=== PATIENT | male | born 1995 | race Caucasian/White ===

== ENCOUNTER 2017-03-06 05:07 | Emergency (ER) | payer BC ==
[2017-03-06] MEDS ORDERED: DECADRON 10MG INJ. IM ONE (05:35)
[2017-03-06] MEDS ORDERED: TORAdol 30 mg Injection IM ONE (05:35)
--- NOTE | 2017-03-06 05:35 | ERPHSYRPT ---
- History of Present Illness Time Seen by Provider: 03/06/17 05:22 Source: patient Exam Limitations: no limitations Patient Subjective Stated Complaint: pt states he coughed this morning and began having lower back pain and is now having trouble standing up straight and difficulty walking. Triage Nursing Assessment: pt alert and oriented. answers questions approp. respirations nonlabored with lungs cta. skin pink warm and dry. pt to room in wheelchair. gait from wheelchair to stretcher slow and stooped. no tenderness noted with palpation to spine. pt denies numbness, tingling or radiation of back pain. Physician History: Patient is a 22-year-old male with no significant past medical history complains of sudden onset of low back pain when he coughed on his way to work this morning. He has no numbness or tingling or pain radiating down his legs. He is able to urinate without difficulty. This back pain occurred approximately 45 minutes ago. He has tried no Tylenol or ibuprofen. Timing/Duration: hour(s) (1) Method of Injury: other (coughed) Quality: sharp, aching Back Pain Location: lumbar spine Severity of Pain-Max: moderate Severity of Pain-Current: moderate Modifying Factors: Improves With: nothing Associated Symptoms: denies symptoms Previous symptoms: no prior history Allergies/Adverse Reactions: No Known Drug Allergies Allergy (Verified 03/06/17 05:17) Home Medications: No Home Meds 1 ea UD 03/06/17 [History] Hx Tetanus, Diphtheria Vaccination/Date Given: Yes (2010) Hx Influenza Vaccination/Date Given: No Hx Pneumococcal Vaccination/Date Given: No Immunizations Up to Date: Yes - Review of Systems Constitutional: No Fever, No Chills Eyes: No Symptoms Ears, Nose, & Throat: No Symptoms Respiratory: No Cough, No Dyspnea Cardiac: No Chest Pain, No Edema, No Syncope Abdominal/Gastrointestinal: No Abdominal Pain, No Nausea, No Vomiting, No Diarrhea Genitourinary Symptoms: No Dysuria Musculoskeletal: Back Pain Skin: No Rash Neurological: No Dizziness, No Focal Weakness, No Sensory Changes Psychological: No Symptoms Endocrine: No Symptoms Hematologic/Lymphatic: No Symptoms Immunological/Allergic: No Symptoms All Other Systems: Reviewed and Negative - Past Medical History Pertinent Past Medical History: No Neurological History: No Pertinent History ENT History: No Pertinent History Cardiac History: No Pertinent History Respiratory History: Asthma Endocrine Medical History: No Pertinent History Musculoskeletal History: No Pertinent History GI Medical History: No Pertinent History History: No Pertinent History Psycho-Social History: No Pertinent History Male Reproductive Disorders: No Pertinent History - Past Surgical History Past Surgical History: Yes Neuro Surgical History: No Pertinent History Cardiac: No Pertinent History Respiratory: No Pertinent History Gastrointestinal: No Pertinent History Genitourinary: No Pertinent History Musculoskeletal: No Pertinent History Male Surgical History: No Pertinent History Other Surgical History: tonsils, adenoids - Social History Smoking Status: Current every day smoker How long have you smoked: 4 Exposure to second hand smoke: Yes Drug Use: none Patient Lives Alone: No - Nursing Vital Signs Temperature: 98.3 F Temperature Source: Oral Pulse Rate: 110 Respiratory Rate: 18 Pain Intensity: 4 - Physical Exam General Appearance: moderate distress Eye Exam: PERRL/EOMI, eyes nml inspection Ears, Nose, Throat Exam: normal ENT inspection Neck Exam: normal inspection, non-tender, supple, full range of motion, No meningismus, No midline tenderness Respiratory Exam: normal breath sounds, lungs clear, No respiratory distress Cardiovascular Exam: regular rate/rhythm, normal heart sounds Gastrointestinal Exam: soft, No tenderness, No mass Rectal Exam: not done Back Exam: decreased range of motion, muscle spasm, No vertebral tenderness, No point tenderness Extremity Exam: normal inspection, normal range of motion, No calf tenderness, No pedal edema Neurologic Exam: alert, oriented x 3, cooperative, 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 You were given Toradol 60 mg and Decadron 10 mg IM injection in the ER. You were given a prescription for Flexeril 10 mg every 8 hours as needed. Use ice as needed. Also given a work excuse for today. Prescriptions: Cyclobenzaprine HCl [Flexeril] 5 mg PO Q8H PRN PRN #10 tablet PRN Reason: Pain
[2017-03-06] MEDS ORDERED: DECADRON 10MG INJ. ONE (05:44)
[2017-03-06] MEDS ORDERED: TORAdol 30 mg Injection ONE ×2 (05:44→05:48)
[2017-03-06 06:21] VITALS: BP 138/79; PULSE 89; O2SAT 97
== END 2017-03-06 06:21 | disposition home or self-care (01) ==
LOC: ED 05:07
DX: M54.5 Low back pain (principal); R26.2 Difficulty in walking, not elsewhere classified
CPT/HCPCS: 96372; 99284; J1100; J1885

== ENCOUNTER 2019-06-13 20:56 | Emergency (ER) | payer BC ==
--- NOTE | 2019-06-13 20:59 | ERPHSYRPT ---
- History of Present Illness Time Seen by Provider: 06/13/19 20:59 Historian: patient, family Exam Limitations: no limitations Physician History: 24 y/o white male presents with right flank and right lower quadrant/groin pain. 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 pt has never had any abd surgeries. nausea but no vomiting. no diarrhea. Timing/Duration: today, sudden, worse Abdominal Pain Onset Location: flank (right), other (groin right side) Pain Radiation: flank (right ), groin (right) Severity of Pain-Max: moderate Severity of Pain-Current: moderate Modifying Factors: Improves With: nothing Associated Symptoms: diaphoresis, nausea, No fever/chills, No vomiting Previous symptoms: no prior history Allergies/Adverse Reactions: No Known Drug Allergies Allergy (Verified 03/06/17 05:17) Home Medications: No Home Meds [No Home Meds] 1 ea UD 03/06/17 [History] Hx Tetanus, Diphtheria Vaccination/Date Given: Yes (2010) Hx Influenza Vaccination/Date Given: No Hx Pneumococcal Vaccination/Date Given: No - Review of Systems Constitutional: No Symptoms Eyes: No Symptoms Ears, Nose, & Throat: No Symptoms Respiratory: No Symptoms Cardiac: No Symptoms Abdominal/Gastrointestinal: Nausea, No Vomiting, No Diarrhea Genitourinary Symptoms: Flank Pain (right flank) Musculoskeletal: No Symptoms Skin: No Symptoms Neurological: No Symptoms Psychological: No Symptoms Endocrine: No Symptoms Hematologic/Lymphatic: No Symptoms Immunological/Allergic: No Symptoms All Other Systems: Reviewed and Negative - Past Medical History Pertinent Past Medical History: No Neurological History: No Pertinent History ENT History: No Pertinent History Cardiac History: No Pertinent History Respiratory History: Asthma Endocrine Medical History: No Pertinent History Musculoskeletal History: No Pertinent History GI Medical History: No Pertinent History History: No Pertinent History Psycho-Social History: No Pertinent History Male Reproductive Disorders: No Pertinent History - Past Surgical History Past Surgical History: Yes Neuro Surgical History: No Pertinent History Cardiac: No Pertinent History Respiratory: No Pertinent History Gastrointestinal: No Pertinent History Genitourinary: No Pertinent History Musculoskeletal: No Pertinent History Male Surgical History: No Pertinent History Other Surgical History: tonsils, adenoids - Social History Smoking Status: Current every day smoker How long have you smoked: 4 Exposure to second hand smoke: Yes Drug Use: none Patient Lives Alone: No - Nursing Vital Signs Nursing Vital Signs: Initial Vital Signs Temperature 98.4 F 06/13/19 20:57 Pulse Rate 93 H 06/13/19 20:57 Respiratory Rate 20 06/13/19 20:57 O2 Sat by Pulse Oximetry 96 06/13/19 20:57 Pain Scale Pain Intensity 10 - Physical Exam General Appearance: moderate distress, alert, anxiety Eye Exam: PERRL/EOMI, eyes nml inspection Ears, Nose, Throat Exam: normal ENT inspection, moist mucous membranes Neck Exam: normal inspection, non-tender, supple, full range of motion Respiratory Exam: normal breath sounds, lungs clear, airway intact, No chest tenderness, No respiratory distress Cardiovascular Exam: regular rate/rhythm, normal heart sounds, normal peripheral pulses Gastrointestinal/Abdomen Exam: soft, normal bowel sounds, tenderness, guarding ( rlg), No rebound Back Exam: normal inspection, normal range of motion, CVA tenderness (right), No vertebral tenderness Extremity Exam: normal inspection, normal range of motion, pelvis stable Neurologic Exam: alert, oriented x 3, cooperative, 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, normal mood/affect Skin Exam: normal color, warm, dry Lymphatic Exam: No adenopathy SpO2 Interpretation: normal O2 Delivery: Room Air - Course Nursing assessment & vital signs reviewed: Yes Ordered Tests: Active Orders 24 hr Category Date Time Status IV Insertion STAT Care 06/13/19 21:15 Active ABDOMEN AND PELVIS W/0 CONTRAS [CT] Stat Exams 06/13/19 22:01 Taken AMYLASE Stat Lab 06/13/19 21:25 Completed CBC W DIFF Stat Lab 06/13/19 21:25 Completed CMP Stat Lab 06/13/19 21:25 Completed LIPASE Stat Lab 06/13/19 21:25 Completed Lactic Acid Stat Lab 06/13/19 21:25 Completed UA W/RFX UR CULTURE Stat Lab 06/13/19 22:15 Received Medication Summary Discontinued Medications Generic Name Dose Route Start Last Admin Trade Name Freq PRN Reason Stop Dose Admin Hydromorphone HCl 1 mg 06/13/19 21:15 06/13/19 21:28 Hydromorphone 1 Mg/Ml Ampule IV 06/13/19 21:16 1 mg STAT ONE Administration Hydromorphone HCl Confirm 06/13/19 21:25 Hydromorphone 1 Mg/Ml Ampule Administered 06/13/19 21:26 Dose 1 mg .ROUTE .STK-MED ONE Sodium Chloride 1,000 mls @ 999 mls/hr 06/13/19 21:15 06/13/19 22:37 Sodium Chloride 0.9% 1000 Ml IV 06/13/19 22:15 Infused .Q1H1M STA Infusion Sodium Chloride Confirm 06/13/19 21:25 Sodium Chloride 0.9% 1000 Ml Administered 06/13/19 21:26 Dose 1,000 mls @ ud .ROUTE .STK-MED ONE Ondansetron HCl 4 mg 06/13/19 21:15 06/13/19 21:27 Zofran 4 Mg/2 Ml Vial IV 06/13/19 21:16 4 mg STAT ONE Administration Ondansetron HCl Confirm 06/13/19 21:25 Zofran 4 Mg/2 Ml Vial Administered 06/13/19 21:26 Dose 4 mg .ROUTE .STK-MED ONE Lab/Rad Data: Laboratory Result Diagrams 06/13/19 21:25 06/13/19 21:25 Laboratory Results 06/13/19 06/13/19 06/13/19 Range/Units 21:25 21:25 21:25 WBC 13.8 H (4.0-10.5) K/mm3 RBC 5.31 (4.1-5.6) M/mm3 Hgb 15.2 (12.5-18.0) gm/dl Hct 44.5 (42-50) % MCV 83.8 (78-100) fl MCH 28.6 (26-32) pg MCHC 34.2 (32-36) g/dl RDW 13.6 (11.5-14.0) % Plt Count 311 (150-450) K/mm3 MPV 9.3 (6-9.5) fl Gran % 47.7 (36.0-66.0) % Eos # (Auto) 0.87 H (0-0.5) Absolute Lymphs (auto) 5.32 H (1.0-4.6) Absolute Monos (auto) 0.97 (0.0-1.3) Lymphocytes % 38.6 (24.0-44.0) % Monocytes % 7.0 (0.0-12.0) % Eosinophils % 6.3 H (0.00-5.0) % Basophils % 0.4 (0.0-0.4) % Absolute Granulocytes 6.59 (1.4-6.9) Basophils # 0.05 (0-0.4) Sodium 143 (137-145) mmol/L Potassium 3.7 (3.5-5.1) mmol/L Chloride 108 H (98-107) mmol/L Carbon Dioxide 23 (22-30) mmol/L Anion Gap 15.3 H (5-15) MEQ/L BUN 14 (9-20) mg/dL Creatinine 0.97 (0.66-1.25) mg/dL Estimated GFR > 60.0 ML/MIN Glucose 127 H (74-106) mg/dL Lactic Acid 1.3 (0.4-2.0) Calcium 10.1 (8.4-10.2) mg/dL Total Bilirubin 0.40 (0.2-1.3) mg/dL AST 33 (17-59) U/L ALT 45 (0-50) U/L Alkaline Phosphatase 97 (38-126) U/L Serum Total Protein 7.3 (6.3-8.2) g/dL Albumin 4.6 (3.5-5.0) g/dL Amylase 40 (30-110) U/L Lipase 65 (23-300) U/L - Progress Progress: improved Progress Note: 06/13/19 22:41 ct abd/pelvis-2 to 3 mm urinary bladder calculus. presumed passage of ureteral stone. minimal ureteral prominence and mild hydronephrosis. normal appendix 06/13/19 22:42 pts pain nearly completely gone. Counseled pt/family regarding: lab results, diagnosis, need for follow-up, rad results - Departure Departure Disposition: Home Clinical Impression: Right ureteral calculus Condition: Stable Critical Care Time: No Referrals: LAURA VINCENT NP [Primary Care Provider] - Additional Instructions: drink plenty of fluids. use ibuprofen 600mg orally 3 times daily with food.
[2019-06-13] MEDS ORDERED: Sodium Chloride 0.9% 1000 ML 1,000 ML ONE (21:25)
[2019-06-13] MEDS ORDERED: Zofran 4 MG/2 ML VIAL ONE (21:25)
[2019-06-13] MEDS ORDERED: Hydromorphone 1 mg/ml Ampule ONE (21:25)
[2019-06-13] MEDS: Sodium Chloride 0.9% 1000 ML 1,000 ML IV STA (21:26)
[2019-06-13] MEDS: Zofran 4 MG/2 ML VIAL IV ONE (21:27)
[2019-06-13] MEDS: Hydromorphone 1 mg/ml Ampule IV ONE (21:28)
[2019-06-13 21:32] LABS: BASOPHIL % 0.4 % (0.0-0.4); Basophil (Absolute #) 0.05 (0-0.4); Eosinophil % 6.3 % (0.00-5.0); Eosinophil (Absolute #) 0.87 (0-0.5); Granulocyte Absolute (ANC) 6.59 (1.4-6.9); Granulocytes % 47.7 % (36.0-66.0); Hematocrit 44.5 % (42-50); Hemoglobin 15.2 gm/dl (12.5-18.0); Lymphocyte (Absolute #) 5.32 (1.0-4.6); Lymphocytes % 38.6 % (24.0-44.0); Mean Cell Volume 83.8 fl (78-100); Mean Corpuscular Hemoglobin 28.6 pg (26-32); Mean Corpuscular Hgb Concent. 34.2 g/dl (32-36); Mean Platelet Volume 9.3 fl (6-9.5); Monocyte (Absolute #) 0.97 (0.0-1.3); Platelet Count 311 K/mm3 (150-450); Red Blood Count 5.31 M/mm3 (4.1-5.6); Red Cell Distribution Width 13.6 % (11.5-14.0); White Blood Count 13.8 K/mm3 (4.0-10.5)
[2019-06-13 21:42] LABS: ALBUMIN 4.6 g/dL (3.5-5.0); ALKALINE PHOSPHATASE 97 U/L (38-126); AMYLASE 40 U/L (30-110); ANION GAP 15.3 MEQ/L (5-15); BLOOD UREA NITROGEN 14 mg/dL (9-20); CHLORIDE 108 mmol/L (98-107); Calcium 10.1 mg/dL (8.4-10.2); Carbon Dioxide 23 mmol/L (22-30); Creatinine 1 0.97 mg/dL (0.66-1.25); Glucose 127 mg/dL (74-106); LIPASE 65 U/L (23-300); Potassium 3.7 mmol/L (3.5-5.1); SGOT/AST 33 U/L (17-59); SGPT/ALT 45 U/L (0-50); SODIUM 143 mmol/L (137-145); Total Protein 7.3 g/dL (6.3-8.2)
[2019-06-13 22:17] VITALS: BP 127/76
[2019-06-13 22:41] LABS: Appearance SLIGHTLY CLOUDY (CLEAR); Bilirubin NEGATIVE (NEGATIVE); Blood LARGE Ery/ul (0-5); Glucose NEGATIVE (NEGATIVE); Hyaline Casts 0-2 /LPF (0-2); Ketones TRACE (NEGATIVE); Leukocyte Esterase NEGATIVE (NEGATIVE); Mucus SLIGHT /HPF (NEGATIVE); Nitrite NEGATIVE (NEGATIVE); Protein,Urine Dip NEGATIVE (Negative); Urobilinogen NEGATIVE mg/dL (0-1)
[2019-06-13 22:42] LABS: RBC >101 /HPF (0-2)
[2019-06-13] MEDS ORDERED: TORAdol 30 mg Injection ONE (22:46)
[2019-06-13] MEDS: TORAdol 30 mg Injection IV ONE (22:48)
[2019-06-13] MEDS ORDERED: NORCO 5/325 MG ONE (22:48)
[2019-06-13] MEDS: NORCO 5/325 MG PO ONE (22:51)
[2019-06-13 23:03] VITALS: PULSE 67; O2SAT 97
[2019-06-13 23:56] LABS: Slide Review 1 YES
--- NOTE | 2019-06-14 08:53 | XRAY ---
Indication: Right lower quadrant pain. Multiple contiguous axial images obtained through the abdomen and pelvis without contrast using renal stone protocol. Comparison: May 01, 2012. Lung bases demonstrates mild bibasilar dependent atelectasis. No infiltrate or effusion. Heart is not enlarged. New 2-3 mm urinary bladder calculus on the right. Right ureter is slightly prominent and there is mild hydronephrosis consistent with recent passage of calculus. Left mid renal cortex again demonstrates small cyst with new punctate calcification. New seminal vesicle calcifications. Noncontrasted stomach and bowel loops appear nonobstructed. Normal appendix. There are now scattered centimeter and subcentimeter mesenteric nodes with minimal stranding favoring adenitis. No free fluid/air. Mild fatty liver. Remaining liver, gallbladder, pancreas, spleen, adrenal glands, kidneys, ureters, bladder, and aorta appear unremarkable for noncontrast exam. Osseous structures again demonstrates bilateral L5 spondylolysis with minimal grade 1 spondylolisthesis. Impression: 1. New urinary bladder micro-calculus with recent passage from right system. Again left renal cortical cyst with new punctate calcification. 2. New scattered small mesenteric nodes with stranding favoring mesenteric adenitis. 3. New fatty liver. 4. Stable L5 spondylolysis with minimal spondylolisthesis. CT DI 23.45
== END 2019-06-13 22:50 | disposition home or self-care (01) ==
LOC: ED 20:56
DX: N20.1 Calculus of ureter (principal)
CPT/HCPCS: 36000; 36415; 74176; 80053; 81001; 82150; 83605; 83690; 85025; 96360; 96374; 96375; 99284; 99291; J1170; J1885; J2405; A9270-GY

== ENCOUNTER 2020-07-12 02:27 | Emergency (ER) | payer BC, MEDICAID, SELFPAY ==
[2020-07-12 02:46] VITALS: O2SAT 98
--- NOTE | 2020-07-12 03:07 | ERPHSYRPT ---
- History of Present Illness Time Seen by Provider: 07/12/20 02:44 Source: patient Exam Limitations: no limitations Patient Subjective Stated Complaint: "I was working on my girlfriend's car when I tripped and landed on my left wrist." Triage Nursing Assessment: Pt presented alert et oriented x3 answering questions appropriately. Pt ambulated to the room without complications. pt reported tripping and landing on his right wrist. The hand was described to be in flexion with the posterior hand striking the ground first. 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 Pain characterized as numb/tingling with increased pain during movement. No reported alleviating factors. No noted vascular compromise to the extremity. Pulse/motor/sensory intact with decreased ROM to the right hand. Physician History: 25 years old male presented in the ER with chief complaint of left wrist pain almost 3 hours after he tripped and fell on outstretched hand while working on a car in his garage. Since then he is complaining of moderate intensity sharp pain, more with movements and better with keeping wrist still. Denies any associated swelling or difficulty movements of fingers/thumb. No injury anywhere else. Allergies/Adverse Reactions: No Known Drug Allergies Allergy (Verified 07/12/20 02:33) Home Medications: Divalproex Sodium 1 tab PO BID 07/12/20 [History] Fluoxetine HCl 20 mg [Prozac 20 MG] 1 cap PO DAILY 07/12/20 [History] Hx Tetanus, Diphtheria Vaccination/Date Given: Yes (2010) Hx Influenza Vaccination/Date Given: No Hx Pneumococcal Vaccination/Date Given: No Travel Risk - International Travel Have you traveled outside of the country in past 3 weeks: No - Coronavirus Screening Are you exhibiting any of the following symptoms?: No Close contact with a COVID-19 positive Pt in past 14-21 Days: No - Review of Systems Constitutional: No Symptoms Eyes: No Symptoms Respiratory: No Symptoms Cardiac: No Symptoms Abdominal/Gastrointestinal: No Symptoms Musculoskeletal: Injury, Joint Pain Neurological: No Symptoms Psychological: No Symptoms Endocrine: No Symptoms Hematologic/Lymphatic: No Symptoms - Past Medical History Pertinent Past Medical History: No Neurological History: No Pertinent History ENT History: No Pertinent History Cardiac History: No Pertinent History Respiratory History: Asthma Endocrine Medical History: No Pertinent History Musculoskeletal History: No Pertinent History GI Medical History: No Pertinent History History: No Pertinent History Psycho-Social History: Bipolar Male Reproductive Disorders: No Pertinent History - Past Surgical History Past Surgical History: Yes Neuro Surgical History: No Pertinent History Cardiac: No Pertinent History Respiratory: No Pertinent History Gastrointestinal: No Pertinent History Genitourinary: No Pertinent History Musculoskeletal: No Pertinent History Male Surgical History: No Pertinent History Other Surgical History: tonsils, adenoids - Social History Smoking Status: Current every day smoker How long have you smoked: 4 Exposure to second hand smoke: Yes Drug Use: none Patient Lives Alone: No - Nursing Vital Signs Nursing Vital Signs: Initial Vital Signs Temperature 98.3 F 07/12/20 02:28 Pulse Rate 102 H 07/12/20 02:28 Respiratory Rate 18 07/12/20 02:28 Blood Pressure 162/100 07/12/20 02:28 O2 Sat by Pulse Oximetry 98 07/12/20 02:28 Pain Scale Pain Intensity 3 - Physical Exam General Appearance: no apparent distress, alert Eyes, Ears, Nose, Throat Exam: normal ENT inspection Neck Exam: normal inspection, supple, full range of motion Cardiovascular/Respiratory Exam: normal breath sounds, regular rate/rhythm Elbow/Forearm Exam: normal inspection, non-tender, no evidence of injury, normal ROM Wrist Exam: bone tenderness, limited ROM, soft tissue tenderness, swelling (Animal swelling dorsum of wrist with soft tissue and mild bony tenderness. Mild limitation range of motion due to pain. Intact distal neurovascular.) Hand Exam: normal inspection Neuro/Tendon Exam: normal sensation Mental Status Exam: alert, oriented x 3 Skin Exam: normal color SpO2 Interpretation: normal SpO2: 98 O2 Delivery: Room Air - Progress Progress: unchanged Progress Note: Not want any pain medications. X-rays are negative for any acute fracture dislocation. Placed in a wrist splint as I believe patient has ligamentous strain/sprain. Recommended taking Tylenol ibuprofen and outpatient follow-up. Discussed signs symptoms of worsening needing return which he seems understanding. Counseled pt/family regarding: diagnosis, need for follow-up, rad results - Departure Departure Disposition: Home Clinical Impression: Wrist sprain Qualifiers: Encounter type: initial encounter Laterality: right Qualified Code(s): S63.501A - Unspecified sprain of right wrist, initial encounter Condition: Stable Critical Care Time: No Referrals: RIKKI HERMAN [Primary Care Provider] - Follow Up with PCP/3 days RAYSHAWN ABARCA NP [NON-STAFF PHY W/O PRIVILEGES] - Follow Up with PCP/3 days Instructions: Common Wrist Injuries (DC) Additional Instructions: Take Tylenol/ibuprofen as needed. Follow-up with primary care and Ortho clinic for reevaluation. Return to ER for worsening. Avoid exertional activities for 2 weeks. Use splint all the time. Prescriptions: Ibuprofen 600 mg PO Q6HPRN PRN 10 Days #20 tablet PRN Reason: Pain
[2020-07-12 03:22] VITALS: BP 154/85; PULSE 88
--- NOTE | 2020-07-12 07:10 | XRAY ---
Indication: Pain following fall. Comparison: None 3 view right hand obtained. No bony, articular, or soft tissue abnormalities.
== END 2020-07-12 03:20 | disposition home or self-care (01) ==
LOC: ED 02:27
DX: S63.501A Unspecified sprain of right wrist, initial encounter (principal); W01.0XXA Fall on same level from slipping, tripping and stumbling without subsequent striking against object, initial encounter
CPT/HCPCS: 73130; 99283; L3908

== ENCOUNTER 2020-11-21 16:48 | Emergency (ER) | payer MEDICAID, OTHER ==
--- NOTE | 2020-11-21 17:14 | ERPHSYRPT ---
- History of Present Illness Time Seen by Provider: 11/21/20 17:13 Source: patient Exam Limitations: no limitations Patient Subjective Stated Complaint: Pt twisted his back at work and has shooting pains down marc legs but at this time just down the left side Triage Nursing Assessment: Pt came to the ER from his work, vitals wnl, rates overall pain as 3/10, pain is in his lower back and radiates down marc back of legs, painful to raise legs in his back, hx of back being twisted before and causing leg weakness Physician History: This is a 25-year-old white male who does a lot of heavy lifting and twisting at work. He has had issues with his lower back at times because of the amount of heavy lifting he does at work. He has been working 7 days a week since July. Today, he twisted his back and similar symptoms of bilateral lower back pain with shooting pain and weakness into his buttock bilaterally. Patient denies any direct trauma such as a fall. He has no loss of sensation. He has full range of motion. He has no loss of bowel or urinary function. In the past, what helped him was steroids and a muscle relaxant. He does not have a ride home. He has no other complaints. Timing/Duration: today Method of Injury: bending, lifting, twisted Quality: radiating, aching Back Pain Location: lumbar spine, paraspinous muscles Back Pain Radiation: buttocks Severity of Pain-Max: moderate Severity of Pain-Current: moderate Modifying Factors: Improves With: movement Previous symptoms: same symptoms as today, no recent treatment Allergies/Adverse Reactions: No Known Drug Allergies Allergy (Verified 11/21/20 17:09) Home Medications: Divalproex Sodium 1 tab PO BID 07/12/20 [History] Hx Tetanus, Diphtheria Vaccination/Date Given: Yes (2010) Hx Influenza Vaccination/Date Given: No Hx Pneumococcal Vaccination/Date Given: No Travel Risk - International Travel Have you traveled outside of the country in past 3 weeks: No - Coronavirus Screening Are you exhibiting any of the following symptoms?: No Close contact with a COVID-19 positive Pt in past 14-21 Days: No - Review of Systems Constitutional: No Symptoms Eyes: No Symptoms Ears, Nose, & Throat: No Symptoms Respiratory: No Symptoms Cardiac: No Symptoms Abdominal/Gastrointestinal: No Symptoms Genitourinary Symptoms: No Symptoms Musculoskeletal: Back Pain, Injury, No Fall Skin: No Symptoms Neurological: No Symptoms Psychological: No Symptoms Endocrine: No Symptoms Hematologic/Lymphatic: No Symptoms Immunological/Allergic: No Symptoms All Other Systems: Reviewed and Negative - Past Medical History Pertinent Past Medical History: No Neurological History: No Pertinent History ENT History: No Pertinent History Cardiac History: No Pertinent History Respiratory History: Asthma Endocrine Medical History: No Pertinent History Musculoskeletal History: No Pertinent History GI Medical History: No Pertinent History History: No Pertinent History Psycho-Social History: Bipolar Male Reproductive Disorders: No Pertinent History - Past Surgical History Past Surgical History: Yes Neuro Surgical History: No Pertinent History Cardiac: No Pertinent History Respiratory: No Pertinent History Gastrointestinal: No Pertinent History Genitourinary: No Pertinent History Musculoskeletal: No Pertinent History Male Surgical History: No Pertinent History Other Surgical History: tonsils, adenoids - Social History Smoking Status: Current every day smoker How long have you smoked: 4 Exposure to second hand smoke: Yes Drug Use: none Patient Lives Alone: No - Nursing Vital Signs Nursing Vital Signs: Initial Vital Signs Temperature 98.4 F 11/21/20 16:57 Pulse Rate 110 H 11/21/20 16:57 Respiratory Rate 16 11/21/20 16:57 Blood Pressure 140/103 11/21/20 16:57 O2 Sat by Pulse Oximetry 98 11/21/20 16:57 Pain Scale Pain Intensity [Back] 3 Pain Intensity 3 - Physical Exam General Appearance: no apparent distress, alert, anxiety Eye Exam: PERRL/EOMI, eyes nml inspection Ears, Nose, Throat Exam: normal ENT inspection, moist mucous membranes Neck Exam: normal inspection, non-tender Respiratory Exam: airway intact, No chest tenderness, No respiratory distress Gastrointestinal Exam: No tenderness Rectal Exam: not done Back Exam: normal inspection, normal range of motion, muscle spasm (Bilateral paraspinous lumbar level), No CVA tenderness, No vertebral tenderness Extremity Exam: normal inspection, normal range of motion, pelvis stable Neurologic Exam: alert, oriented x 3, cooperative, 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, normal mood/affect, nml cerebellar function, nml station & gait, sensation nml Skin Exam: normal color, warm, dry Lymphatic Exam: No adenopathy SpO2 Interpretation: normal SpO2: 98 O2 Delivery: Room Air - Course Nursing assessment & vital signs reviewed: Yes Ordered Tests: Medication Summary Generic Name Dose Route Start Last Admin Trade Name Lien PRN Reason Stop Dose Admin Prednisone 20 mg 11/22/20 17:48 Deltasone 20 Mg PO 11/22/20 17:49 STAT ONE Discontinued Medications Generic Name Dose Route Start Last Admin Trade Name Lien PRN Reason Stop Dose Admin Hydrocodone Bitart/Acetaminophen 2 tab 11/21/20 17:48 Epes 5/325 Mg PO 11/21/20 17:49 SENT HOME W/ PATIENT ONE Hydrocodone Bitart/Acetaminophen Confirm 11/21/20 17:59 Epes 5/325 Mg Administered 11/21/20 18:00 Dose 2 tab .ROUTE .STK-MED ONE Cyclobenzaprine HCl 10 mg 11/21/20 17:48 Cyclobenzaprine 10 Mg PO 11/21/20 17:49 STAT ONE Cyclobenzaprine HCl Confirm 11/21/20 17:58 Cyclobenzaprine 10 Mg Administered 11/21/20 17:59 Dose 10 mg .ROUTE .STK-MED ONE Prednisone Confirm 11/21/20 17:59 Deltasone 20 Mg Administered 11/21/20 18:00 Dose 20 mg .ROUTE .STK-MED ONE - Progress Progress: unchanged Counseled pt/family regarding: diagnosis, need for follow-up - Departure Departure Disposition: Home Clinical Impression: Back pain, Sciatica Condition: Stable Critical Care Time: No Referrals: RIKKI HERMAN [Primary Care Provider] - Additional Instructions: Take medication as prescribed. Follow-up with your primary care physician for persistent symptoms. Rest for the next 3 days. Forms: Work/School Release Form Prescriptions: Carisoprodol 350 mg [Soma 350 mg] 350 mg PO Q8H PRN PRN #10 tablet PRN Reason: Muscle Spasms Prednisone 10 mg [Deltasone 10 mg] 10 mg PO TID #12 tablet
[2020-11-21] MEDS ORDERED: Cyclobenzaprine 10 MG PO ONE (17:48)
[2020-11-21] MEDS ORDERED: NORCO 5/325 MG PO ONE (17:48)
[2020-11-21] MEDS ORDERED: Cyclobenzaprine 10 MG ONE (17:58)
[2020-11-21] MEDS ORDERED: NORCO 5/325 MG ONE (17:59)
[2020-11-21] MEDS ORDERED: DELTASONE 20 MG ONE (17:59)
[2020-11-21 18:08] VITALS: O2SAT 98
[2020-11-21 18:12] VITALS: BP 133/86; PULSE 89
[2020-11-22] MEDS ORDERED: DELTASONE 20 MG PO ONE (17:48)
== END 2020-11-21 18:12 | disposition home or self-care (01) ==
LOC: ED 16:48
DX: M54.9 Dorsalgia, unspecified (principal); M54.32 Sciatica, left side; X50.9XXA Other and unspecified overexertion or strenuous movements or postures, initial encounter
CPT/HCPCS: 99283; A9270-GY

== ENCOUNTER 2022-05-31 17:27 | Emergency (ER) | payer BC ==
[2022-05-31] MEDS ORDERED: SUBLIMAZE 100 MCG/2 ML IM ONE (17:43)
[2022-05-31] MEDS ORDERED: CLONIDINE 0.1 MG TABLET PO ONE (17:47)
[2022-05-31] MEDS ORDERED: NORVASC 5 MG PO ONE (17:47)
[2022-05-31] MEDS ORDERED: SUBLIMAZE 100 MCG/2 ML ONE (17:50)
[2022-05-31] MEDS ORDERED: NORVASC 5 MG ONE (17:50)
[2022-05-31] MEDS ORDERED: CLONIDINE 0.1 MG TABLET ONE (17:50)
[2022-05-31 17:58] LABS: Appearance CLEAR (CLEAR); Bilirubin NEGATIVE (NEGATIVE); Glucose NEGATIVE (NEGATIVE); Ketones NEGATIVE (NEGATIVE); RBC NEGATIVE Ery/ul (0-5); Specific Gravity 1.025 (1.005-1.025)
[2022-05-31 17:59] LABS: Bacteria RARE /HPF (NEGATIVE); Dipstick done @ ? MAIN LAB; Epithelial Cells RARE /HPF (FEW); Mucus SLIGHT /HPF (NEGATIVE); Nitrite NEGATIVE (NEGATIVE); Protein,Urine Dip NEGATIVE (Negative); RBC 0-2 /HPF (0-2); Urobilinogen 0.2 mg/dL (0-1)
[2022-05-31 18:01] LABS: Urine Cultured Indicated? NO
[2022-05-31 18:12] LABS: Amphetamine,Urine NEGATIVE (NEGATIVE); Barbiturate,Urine NEGATIVE (NEGATIVE); Benzodiazepine,Urine NEGATIVE (NEGATIVE); Methadone,Urine NEGATIVE (NEGATIVE); Opiate,Urine NEGATIVE (NEGATIVE); PCP,Urine NEGATIVE (NEGATIVE); THC,Urine NEGATIVE (NEGATIVE)
--- NOTE | 2022-05-31 18:37 | ERPHSYRPT ---
- History of Present Illness Time Seen by Provider: 05/31/22 17:40 Source: patient Exam Limitations: no limitations Patient Subjective Stated Complaint: Pt states "I have had a headache for the past week and my blood pressure has been up." Triage Nursing Assessment: PT presented alert and oriented X 3, skin pwd. pt ambulates with an upright steady gait, able to speak in clear full sentences pt in no apparent respiratory distress. Physician History: Patient is a 27-year-old male who was seen in the clinic yesterday with numerous normal labs for headache and hypertension. His headache started 1 week ago and his blood pressure has been rising since his headache is occipital in location and causes some photophobia. The pain from his head is waxing and waning and is definitely worse with activity. His blood pressure at home the highest recorded was 157/111. Yesterday his CBC and chemistries were totally normal. Timing/Duration: week(s) (1), intermittent Quality: pressure, throbbing Head Pain Location: occipital Severity of Pain-Max: moderate Severity of Pain-Current: moderate Recent Head Trauma: occasional headaches Modifying Factors: Improves With: movement Associated Symptoms: sensitive to light Previous symptoms: no prior history Allergies/Adverse Reactions: No Known Drug Allergies Allergy (Verified 11/21/20 17:09) Home Medications: Sertraline HCl 50 mg [Zoloft 50 mg Tablet] 50 mg PO DAILY 05/31/22 [History] Hx Tetanus, Diphtheria Vaccination/Date Given: Yes (2010) Hx Influenza Vaccination/Date Given: No Hx Pneumococcal Vaccination/Date Given: No Immunizations Up to Date: Yes Travel Risk - International Travel Have you traveled outside of the country in past 3 weeks: No - Coronavirus Screening Are you exhibiting any of the following symptoms?: No Symptoms: Headaches/Body Aches/Fatigue Close contact with a COVID-19 positive Pt in past 14-21 Days: No - Vaccine Status Have you recieved a Covid-19 vaccination: No - Review of Systems Constitutional: No Fever, No Chills Eyes: No Symptoms Ears, Nose, & Throat: No Symptoms Respiratory: No Cough, No Dyspnea Cardiac: No Chest Pain, No Edema, No Syncope Abdominal/Gastrointestinal: No Abdominal Pain, No Nausea, No Vomiting, No Diarrhea Genitourinary Symptoms: No Dysuria Musculoskeletal: No Back Pain, No Neck Pain Skin: No Rash Neurological: Headache, No Dizziness, No Focal Weakness, No Sensory Changes Psychological: No Symptoms Endocrine: No Symptoms All Other Systems: Reviewed and Negative - Past Medical History Pertinent Past Medical History: Yes Neurological History: No Pertinent History ENT History: No Pertinent History Cardiac History: No Pertinent History Respiratory History: No Pertinent History Endocrine Medical History: No Pertinent History Musculoskeletal History: Other GI Medical History: No Pertinent History History: No Pertinent History Psycho-Social History: Anxiety, Bipolar Male Reproductive Disorders: No Pertinent History Other Medical History: PER PATIENT HX "CRACKED" DISC - Past Surgical History Past Surgical History: Yes Neuro Surgical History: No Pertinent History Cardiac: No Pertinent History Respiratory: No Pertinent History Gastrointestinal: No Pertinent History Genitourinary: No Pertinent History Musculoskeletal: No Pertinent History Male Surgical History: No Pertinent History Other Surgical History: tonsils, adenoids - Social History Smoking Status: Current every day smoker How long have you smoked: 4 Exposure to second hand smoke: Yes Drug Use: none Patient Lives Alone: No - Nursing Vital Signs Nursing Vital Signs: Initial Vital Signs Temperature 97.9 F 05/31/22 17:32 Pulse Rate 85 05/31/22 17:32 Respiratory Rate 22 05/31/22 17:32 Blood Pressure 149/109 05/31/22 17:32 O2 Sat by Pulse Oximetry 96 05/31/22 17:32 Pain Scale Pain Intensity 4 - Physical Exam General Appearance: no apparent distress Eye Exam: PERRL/EOMI Ears, Nose, Throat Exam: normal ENT inspection, moist mucous membranes Neck Exam: normal inspection, supple, full range of motion, No meningismus Respiratory Exam: normal breath sounds, lungs clear Cardiovascular Exam: regular rate/rhythm, normal heart sounds Gastrointestinal/Abdominal Exam: soft, No tenderness, No distention Back Exam: normal inspection, normal range of motion Mental Status Exam: alert, oriented x 3, cooperative biologist Exam: normal speech, PERRL, No facial droop Coordination/Gait Exam: normal cerebellar function Motor/Sensory Exam: no motor deficit, no sensory deficit Skin Exam: normal color, warm, dry, No rash SpO2 Interpretation: normal SpO2: 96 O2 Delivery: Room Air Ordered Tests: Active Orders 24 hr Category Date Time Status EKG-ER Only STAT Care 05/31/22 17:49 Active HEAD WITHOUT CONTRAST [CT] Stat Exams 05/31/22 17:46 Taken TROPONIN Q3H Lab 05/31/22 18:30 Ordered TROPONIN Q3H Lab 05/31/22 21:30 Ordered UA W/RFX CULTURE Stat Lab 05/31/22 17:57 Completed Urine Triage Profile Stat Lab 05/31/22 17:51 Completed Medication Summary Discontinued Medications Generic Name Dose Route Start Last Admin Trade Name Lien PRN Reason Stop Dose Admin Amlodipine Besylate 5 mg 05/31/22 17:47 05/31/22 17:53 Amlodipine Besylate 5 Mg Tablet PO 05/31/22 17:48 5 mg STAT ONE Administration Amlodipine Besylate Confirm 05/31/22 17:50 Amlodipine Besylate 5 Mg Tablet Administered 05/31/22 17:51 Dose 5 mg .ROUTE .STK-MED ONE Clonidine 0.1 mg 05/31/22 17:47 05/31/22 17:53 Clonidine Hcl 0.1 Mg Tablet PO 05/31/22 17:48 0.1 mg STAT ONE Administration Clonidine Confirm 05/31/22 17:50 Clonidine Hcl 0.1 Mg Tablet Administered 05/31/22 17:51 Dose 0.1 mg .ROUTE .STK-MED ONE Fentanyl Citrate 50 mcg 05/31/22 17:43 05/31/22 17:53 Fentanyl Citrate 100 Mcg/2 Ml* Vial IM 05/31/22 17:44 50 mcg STAT ONE Administration Fentanyl Citrate Confirm 05/31/22 17:50 Fentanyl Citrate 100 Mcg/2 Ml* Vial Administered 05/31/22 17:51 Dose 100 mcg .ROUTE .STK-MED ONE Lab/Rad Data: Laboratory Results 05/31/22 05/31/22 Range/Units 17:57 17:51 Urinalys Dipstick Clnc MAIN LAB Urine Color YELLOW (YELLOW) Urine Appearance CLEAR (CLEAR) Urine pH 7.0 (5-6) Ur Specific [place] 1.025 (1.005-1.025) POC Urine Protein Conf NEGATIVE (Negative) Urine Ketones NEGATIVE (NEGATIVE) Urine Nitrite NEGATIVE (NEGATIVE) Urine Bilirubin NEGATIVE (NEGATIVE) Urine Urobilinogen 0.2 (0-1) mg/dL Urine Leukocytes NEGATIVE (NEGATIVE) Urine WBC (Auto) 16-25 (0-5) /HPF Urine RBC (Auto) 0-2 (0-2) /HPF U Epithel Cells (Auto) RARE (FEW) /HPF Urine Bacteria (Auto) RARE (NEGATIVE) /HPF Urine RBC NEGATIVE (0-5) Adam/ul Urine Mucus (Auto) SLIGHT (NEGATIVE) /HPF Ur Culture Indicated? NO Urine Glucose NEGATIVE (NEGATIVE) mg/dL Urine Opiates Level NEGATIVE (NEGATIVE) Ur Methadone NEGATIVE (NEGATIVE) Urine Barbiturates NEGATIVE (NEGATIVE) Ur Phencyclidine (PCP) NEGATIVE (NEGATIVE) Urine Amphetamine NEGATIVE (NEGATIVE) U Benzodiazepine Level NEGATIVE (NEGATIVE) Urine Marijuana (THC) NEGATIVE (NEGATIVE) - Progress Progress: improved Air Movement: good Blood Culture(s) Obtained: No Antibiotics given: Yes - Departure Departure Disposition: Home Clinical Impression: Headache, Hypertension, Sinusitis Condition: Stable Critical Care Time: No Referrals: RIKKI HERMAN MD [Primary Care Provider] - Follow up/PCP as directed Instructions: Headache, Adult (DC), Sinusitis, Adult (DC), Malignant Hypertension (DC) Prescriptions: Cephalexin Mh 500 mg [Keflex 500 mg] 500 mg PO TID 7 Days #21 cap Amlodipine Besylate 5 mg [Norvasc 5 mg] 5 mg PO DAILY 30 Days #30 tablet
[2022-05-31 20:16] VITALS: BP 109/72; PULSE 70; O2SAT 97
--- NOTE | 2022-06-01 08:45 | XRAY ---
Indication: Headache 1 week. No known injury. Multiple contiguous axial images obtained through the head without contrast. Comparison: None Normal appearing brain parenchyma, ventricles, and bony calvarium. Mild mucosal thickening inferior left maxillary sinus. Remaining visualized paranasal sinuses and mastoid air cells are clear. Impression: Left maxillary sinus disease. Remaining CT head without contrast exam is normal.
== END 2022-05-31 20:18 | disposition home or self-care (01) ==
LOC: ED 17:27
DX: R51.9 Headache, unspecified (principal); I10 Essential (primary) hypertension; J32.0 Chronic maxillary sinusitis; Z72.0 Tobacco use; Z79.899 Other long term (current) drug therapy; Z28.310 Unvaccinated for COVID-19
CPT/HCPCS: 70450; 80307; 81015; 93005; 96372; 99284; J3010; A9270-GY